=== PATIENT | female | born 1980 | race African-American/Black ===

== ENCOUNTER 2020-08-15 12:41 | Emergency (ER) | payer MEDICAID ==
[~2020-08-15] VITALS: Ht 172.7 cm; Wt 82.0 kg
[~2020-08-15 12:41] MED LIST: FERR-43 PO; LEVO75TA PO
[2020-08-15 12:49] VITALS: BP 132/72
== END 2020-08-15 13:27 | disposition home or self-care (01) ==
LOC: ER 12:41
DX: Z00.00 Encounter for general adult medical examination without abnormal findings (principal)
CPT/HCPCS: 99281